=== PATIENT | female | born 1990 | race Two or more races ===

== ENCOUNTER 2021-07-23 21:37 | Emergency (ER) | payer OTHER ==
[~2021-07-23] VITALS: Ht 157.5 cm; Wt 64.4 kg
== END 2021-07-24 00:51 | disposition home or self-care (01) ==
LOC: ER 21:37
DX: R51.9 Headache, unspecified (principal); M54.2 Cervicalgia; V49.9XXA Car occupant (driver) (passenger) injured in unspecified traffic accident, initial encounter; Y93.9 Activity, unspecified; Y92.413 State road as the place of occurrence of the external cause; Y99.9 Unspecified external cause status; Z88.0 Allergy status to penicillin